=== PATIENT | female | born 1945 | race Caucasian/White ===

== ENCOUNTER → 2017-08-24 | Outpatient (CLI) | payer MEDICARE ==
[~2017-08-24] MED LIST: HYCOS PO; MEDR4PAK3 PO; PREV30CA36 PO; TOPR25TA2 PO; ZITH250T PO; [UNRECOGNIZED DRUG - REMARK]; [UNRECOGNIZED DRUG - REMARK] PO
--- NOTE | 2017-08-28 09:09 | RSPPFT ---
DATE OF PROCEDURE: 08/24/17 COMMENTS: Spirometry demonstrates an FEV1 of 0.6 at 32% of predicted, FVC of 2.3 at 92%, FEV1/FVC ratio at 27%. The FEF 25-75 is 27% of predicted. Post-bronchodilator study demonstrated remarkable improvements. Lung volumes demonstrated a raised RV/TLC ratio suggesting hyperinflation and air trapping. Diffusion capacity is mildly reduced. Flow volume loops are suggestive of an obstructive pattern. IMPRESSION: 1. Severe obstructive disease. 2. Significant response to use of bronchodilator indicating reversibility. 3. Mild loss in diffusion capacity.
== END ==
LOC: HRSP 07:38
DX: R06.2 Wheezing (principal); R05 Cough; R07.9 Chest pain, unspecified
CPT/HCPCS: 94060; 94726; 94729